=== PATIENT | female | born 1985 | race Caucasian/White ===

== ENCOUNTER 2018-04-19 16:43 | Emergency (ER) | payer SELFPAY ==
[2018-04-19] MEDS ORDERED: predniSONE 20 MG TAB PO ONE (17:02)
[2018-04-19] MEDS ORDERED: DIAZEPAM 5 MG PREPACK#4 BTL TAKEHOME ONE (17:03)
--- NOTE | 2018-04-19 17:04 | EDPHY ---
H & P Stated Complaint: L neck/shoulder/arm pain Time Seen by Provider: 04/19/18 16:51 HPI/ROS: CHIEF COMPLAINT: Left-sided neck pain HISTORY OF PRESENT ILLNESS: The patient is a 32-year-old female who comes to the emergency department complaining of left-sided neck pain for the last 5 days with minor paresthesias to her left arm. She thought that she had a pinched nerve from sleeping awkwardly a few days ago but it does not seem to be getting better. She has been taking ibuprofen. She denies chest pain or shortness of breath. She does have asthma but states that this is a baseline. No fevers. No significant trauma. No headache. Symptoms worsened when she turns her head certain directions particularly to the left. She does not have any weakness. She has not had trouble holding things or grasping things. Severity: Moderate to severe Modifying factors: Worsens with turning her head to the left. REVIEW OF SYSTEMS: Constitutional: denies: chills, fever, recent illness, recent injury EENTM: denies: blurred vision, double vision, nose congestion Respiratory: denies: cough, shortness of breath Cardiac: denies: chest pain, irregular heart rate, lightheadedness, palpitations Gastrointestinal/Abdominal: denies: abdominal pain, diarrhea, nausea, vomiting, blood streaked stools Genitourinary: denies: dysuria, frequency, hematuria, pain Musculoskeletal: See HPI Skin: denies: lesions, rash, jaundice, bruising Neurological: See HPI denies: headache, numbness, dizziness, weakness Hematologic/Lymphatic: denies: blood clots, easy bleeding, easy bruising Immunologic/allergic: denies: HIV/AIDS, transplant 10 systems reviewed and negative except as noted EXAM: GENERAL: Well-appearing, well-nourished and in no acute distress. HEAD: Atraumatic, normocephalic. EYES: Pupils equal round and reactive to light, extraocular movements intact, sclera anicteric, conjunctiva are normal. ENT: TMs normal, nares patent, oropharynx clear without exudates. Moist mucous membranes. NECK: Left-sided neck pain with paresthesias radiating to left arm, no swelling or deformity. No erythema or rash. Normal range of motion, supple without lymphadenopathy or JVD. LUNGS: Breath sounds clear to auscultation bilaterally and equal. No wheezes rales or rhonchi. HEART: Regular rate and rhythm without murmurs, rubs or gallops. ABDOMEN: Soft, nontender, normoactive bowel sounds. No guarding, no rebound. No masses appreciated. BACK: No CVA tenderness, no spinal tenderness, step-offs or deformities EXTREMITIES: Normal range of motion, no pitting or edema. No clubbing or cyanosis. NEUROLOGICAL: Cranial nerves II through XII grossly intact. Normal speech, normal gait. 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 PSYCH: Normal mood, normal affect. SKIN: Warm, dry, normal turgor, no visible rashes or lesions. Source: Patient Exam Limitations: No limitations - Personal History LMP (Females 10-55): 15-21 Days Ago Current Tetanus/Diphtheria Vaccine: Yes Current Tetanus Diphtheria and Acellular Pertussis (TDAP): Yes - Medical/Surgical History Hx Asthma: Yes Hx Chronic Respiratory Disease: No Hx Diabetes: No Hx Cardiac Disease: No Hx Renal Disease: No Hx Cirrhosis: No Hx Alcoholism: No Hx HIV/AIDS: No Hx Splenectomy or Spleen Trauma: No Other PMH: asthma - Family History Significant Family History: No pertinent family hx - Social History Smoking Status: Never smoked Alcohol Use: Sober Drug Use: None Constitutional: Initial Vital Signs Temperature (C) 37.2 C 04/19/18 16:47 Heart Rate 78 04/19/18 16:47 Respiratory Rate 16 04/19/18 16:47 Blood Pressure 130/90 H 04/19/18 16:47 O2 Sat (%) 97 04/19/18 16:47 O2 Delivery Mode Room Air Allergies/Adverse Reactions: Penicillins Allergy (Verified 04/19/18 16:47) Home Medications: Medication Instructions Recorded Albuterol 04/19/18 Diazepam [Valium 5 MG (*)] 5 mg PO TID PRN #10 tab 04/19/18 methylPREDNISolone [Medrol Dose 1 each PO AD #1 ea 04/19/18 Seamus] Medical Decision Making - Diagnostics EKG Interpretation: An EKG obtained and was read and documented in trace view. Please see trace view for full reading and report. Sinus rhythm, no acute ischemic changes Imaging Results: Imaging Impressions Cervical Spine X-Ray 04/19/18 17:01 Impression: 1. No acute osseous abnormality seen about the cervical spine. 2. Mild reversal of the normal lordosis of the mid cervical spine. This is nonspecific but can be seen with muscle spasm. 3. Mild disk space narrowing with small anterior marginal osteophyte at C5-C6. Imaging: Discussed imaging studies w/ manager call center Radiologist ED Course/Re-evaluation: We discussed the EKG results and reviewed the x-ray together. This fits clinically and historically with a cervical strain with possible radiculopathy. X-ray showed no acute fractures. I do not think this is a myocardial infarction or PE. She has an appointment with chiropractor later this week and I will also refer her to physical therapy. We discussed steroid treatment as well as muscle relaxants and anti-inflammatories and rest. She is asking for a note for work today. Differential Diagnosis: Partial list of the Differential diagnosis considered include but were not limited to; cervical strain, radiculopathy and although unlikely based on the history and physical exam, I also considered fracture, acute coronary disease, PE, pneumonia. I discussed these differential diagnoses and the plan with the patient as well as the usual and expected course. The patient understands that the diagnosis is provisional and that in medicine we are not always correct and that further workup is often warranted. Usual and customary warnings were given. All of the patient's questions were answered. The patient was instructed to return to the emergency department should the symptoms at all worsen or return, otherwise to followup with the physician as we discussed. - Data Points Medications Given: Discontinued Medications Diazepam (Valium 5 Mg Prepack#4) 1 btl TAKEHOME EDNOW ONE Stop: 04/19/18 17:04 Last Admin: 04/19/18 17:12 Dose: 1 btl Prednisone (Prednisone) 60 mg PO EDNOW ONE Stop: 04/19/18 17:03 Last Admin: 04/19/18 17:12 Dose: 60 mg Departure - Departure Disposition: Home, Routine, Self-Care Clinical Impression: Neck pain on left side, Radiculopathy, cervical Cervical strain Qualifiers: Encounter type: initial encounter Qualified Code(s): S16.1XXA - Strain of muscle, fascia and tendon at neck level, initial encounter Condition: Fair Instructions: Diazepam (By mouth), Neck Pain (ED) Referrals: NONE *PRIMARY CARE P,. [Primary Care Provider] - As per Instructions Cristopher Cr MD [Medical Doctor] - As per Instructions Stand Alone Forms: Work Excuse Prescriptions: Diazepam [Valium 5 MG (*)] 5 mg PO TID PRN #10 tab PRN Reason: Spasms methylPREDNISolone [Medrol Dose Seamus] 1 each PO AD #1 ea
--- NOTE | 2018-04-19 17:17 | CPEKG ---
Test Reason : OPEN Blood Pressure : / mmHG Vent. Rate : 076 BPM Atrial Rate : 075 BPM P-R Int : 142 ms QRS Dur : 073 ms QT Int : 357 ms P-R-T Axes : 059 038 031 degrees QTc Int : 402 ms Sinus rhythm Confirmed by Jovon Lowe ([id number]) on 04/19/2018 5:16:32 PM Referred By: Confirmed By:Jovon Lowe
[2018-04-19 17:56] VITALS: BP 113/84
== END 2018-04-19 18:11 | disposition home or self-care (01) ==
DX: S16.1XXA Strain of muscle, fascia and tendon at neck level, initial encounter (principal); R20.2 Paresthesia of skin; X50.1XXA Overexertion from prolonged static or awkward postures, initial encounter; Y93.84 Activity, sleeping; Y92.9 Unspecified place or not applicable; Y99.9 Unspecified external cause status
CPT/HCPCS: J7512

== ENCOUNTER 2018-05-07 17:23 | Emergency (ER) | payer OTHER ==
[2018-05-07 17:38] VITALS: BP 129/94
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
[2018-05-07] MEDS ORDERED: IBUPROFEN 800 MG TAB PO ONE (18:05)
== END 2018-05-07 18:15 | disposition home or self-care (01) ==
DX: S06.0X0A Concussion without loss of consciousness, initial encounter (principal); V47.5XXA Car driver injured in collision with fixed or stationary object in traffic accident, initial encounter; Y92.410 Unspecified street and highway as the place of occurrence of the external cause

== ENCOUNTER 2018-06-01 18:42 | Emergency (ER) | payer SELFPAY ==
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
[2018-06-01 19:59] VITALS: BP 145/84
== END 2018-06-01 19:57 | disposition home or self-care (01) ==
PROC: 2W3EX1Z Immobilization of Right Hand using Splint (ICD-10-PCS; principal; 2018-06-01)
DX: S62.144A Nondisplaced fracture of body of hamate [unciform] bone, right wrist, initial encounter for closed fracture (principal); Y04.0XXA Assault by unarmed brawl or fight, initial encounter